=== PATIENT | male | born 1955 | race Caucasian/White ===

== ENCOUNTER 2021-02-28 09:00 | Day surgery (SDC) | payer MEDICARE, SELFPAY ==
[2021-02-22 09:52] VITALS: BMI 22.3
--- NOTE | 2021-02-24 08:18 | MHC.SHP ---
Pre-Procedural Eval Section A The patient is an INPATIENT: No The History & Physical has been completed within 30 days and I have reviewed it.: Yes Section B Chief Complaint: Cataract Left Eye Allergies: Allergies Allergy/AdvReac Type Severity Reaction Status Date / Time No Known Allergies Allergy Verified 02/23/21 12:00 [No Known Allergies*] Plan Diagnosis/Plan: Unchanged I have reviewed the history and physical and performed a pertinent physical examination on my patient. No changes have occurred unless specified.
--- NOTE | 2021-02-25 09:54 | HO.ANESPROP2 ---
Documented by User: Elsa Perkins 02/25/21 09:55 HPI - Anesthesia Eval Consult details Narrative: 65yo M for Left Cataract Extraction IOL Insertion PCP cleared No prev cataract on record [facility] Active Problems Active Problems: All Active Problems (Updated 02/23/21 @ 12:09 by Rizwan Ibrahim MD) Preop exam for internal medicine (Acute) Tobacco abuse (Acute) Hypercholesterolemia (Acute) Atherosclerosis (Acute) COPD (chronic obstructive pulmonary disease) (Acute) Hypertension (Acute) Impaired fasting blood sugar (Acute) Past Medical History Medical History (Updated 02/23/21 @ 12:09 by Rizwan Ibrahim MD) Atherosclerosis COPD (chronic obstructive pulmonary disease) COVID-19 vaccine administered Fatty liver History of alcohol abuse Hypercholesterolemia Hypertension Impaired fasting blood sugar Leukopenia Pulmonary nodule Thrombocytopenia Tobacco abuse Family History Family History (Updated 08/02/20 @ 10:01 by Janette Paula [facility]) Father No problems noted. Mother Uterine cancer Maternal Grandmother Myocardial infarction Maternal Uncle Myocardial infarction Surgical History Surgical History (Updated 02/22/21 @ 09:53 by Beverly Wilkins) History of inguinal hernia repair History of vasectomy Social History Social History (Updated 02/23/21 @ 12:16 by Rizwan Ibrahim MD) Housing: House Are you a primary customer care associate to a significant other at home: No Do you presently have visiting nurse or other home services: No Alcohol intake: current Alcohol intake frequency: 0-2 drinks per day Alcohol type: beer Patient Tobacco Use Status: Current everyday Tobacco user Tobacco use type: Cigarette Cigarette Packs Per Day: 1 Cigarettes Per Day: 20.0 Years Smoked: 45 Use of substances other than those prescribed or required for medical reasons: No Have you been hit, kicked, punched, or otherwise hurt by someone within the past year? If so, by whom?: No Are you DNR?: No Advance Directives Information Provided: No Recently lost weight without trying: No Eating poorly because of decreased appetite: No Nutrition Risks: No Nutritional Risk service: No Current occupational status: employed Meds Allergies Allergy/AdvReac Type Severity Reaction Status Date / Time No Known Allergies Allergy Verified 02/23/21 12:00 [No Known Allergies*] Exam Exam Date and Time: February 25, 2021 0954 Height,Weight and Vital Signs: Height 5 ft 9 in Weight 68.492 kg Assessment and Plan Assessment Anesthesia Assessment: Chart Reviewed Documented by User: Sasha Flood 02/28/21 11:36 PMFSH Past Medical History Medical History (Updated 02/23/21 @ 12:09 by Rizwan Ibrahim MD) Atherosclerosis COPD (chronic obstructive pulmonary disease) COVID-19 vaccine administered Fatty liver History of alcohol abuse Hypercholesterolemia Hypertension Impaired fasting blood sugar Leukopenia Pulmonary nodule Thrombocytopenia Tobacco abuse Family History Family History (Updated 08/02/20 @ 10:01 by Janette Paula [facility]) Father No problems noted. Mother Uterine cancer Maternal Grandmother Myocardial infarction Maternal Uncle Myocardial infarction Surgical History Surgical History (Updated 02/22/21 @ 09:53 by Beverly Wilkins) History of inguinal hernia repair History of vasectomy Social History Social History (Updated 02/23/21 @ 12:16 by Rizwan Ibrahim MD) Housing: House Are you a primary customer care associate to a significant other at home: No Do you presently have visiting nurse or other home services: No Alcohol intake: current Alcohol intake frequency: 0-2 drinks per day Alcohol type: beer Patient Tobacco Use Status: Current everyday Tobacco user Tobacco use type: Cigarette Cigarette Packs Per Day: 1 Cigarettes Per Day: 20.0 Years Smoked: 45 Use of substances other than those prescribed or required for medical reasons: No Have you been hit, kicked, punched, or otherwise hurt by someone within the past year? If so, by whom?: No Are you DNR?: No Advance Directives Information Provided: No Recently lost weight without trying: No Eating poorly because of decreased appetite: No Nutrition Risks: No Nutritional Risk service: No Current occupational status: employed Meds Allergies Allergy/AdvReac Type Severity Reaction Status Date / Time No Known Allergies Allergy Verified 02/23/21 12:00 [No Known Allergies*] Exam Airway Mallampati Class: II (Edentulos) TM Dist: >3cm Neck ROM: Full Heart: rrr Lungs: cta Assessment and Plan Assessment Anesthesia Assessment: Anesthesia Plan Discussed and Chart Reviewed Final Anesthetic Review NPO: Yes ASA Class: III Final Preanesthetic Review: No Changes in Pt Med Stat and Consent Obtained/Reviewed Patient Risk: Intermediate Procedure Risk: Intermediate Anesthetic Plan Anesthetic Plan: MAC: Disposition: Standard PACU
--- NOTE | 2021-02-25 12:20 | ECG_ITS ---
Test Reason : PREOP Blood Pressure : / mmHG Vent. Rate : 079 BPM Atrial Rate : 079 BPM P-R Int : 180 ms QRS Dur : 098 ms QT Int : 380 ms P-R-T Axes : 063 064 069 degrees QTc Int : 435 ms Normal sinus rhythm Normal ECG When compared with ECG of 11-NOV-2011 08:30, No significant change was found Referred By: Rizwan Ibrahim Electronically Signed By:KARINA HERNDON
[2021-02-25 13:44] LABS: MANUAL DIFF FLAG NO
[2021-02-25 13:49] LABS: Basophils Percent Auto 0.7 % (0-2); Eosinophils Absolute Auto 0.1 X10*3/uL (0.0-0.4); Eosinophils Percent Auto 1.4 % (0-4); Hematocrit 46.7 % (42-52); Hemoglobin 17.1 g/dl (14.0-18.0); Imm Gran Abs Auto 0.02 X10*3/uL (0.00-0.03); Imm Gran Pct Auto 0.3 % (0.0-0.4); Lymphocytes Absolute Auto 1.5 X10*3/uL (1.2-4.9); Lymphocytes Percent Auto 25.2 % (20-40); Mean Corpuscular HGB Conc 36.6 g/dl (31.0-36.0); Mean Corpuscular Hemoglobin 34.8 pg (27.0-33.0); Mean Corpuscular Volume 94.9 fL (80-98); Mean Platelet Volume 10.1 fL (9.4-12.4); Monocytes Absolute Auto 0.6 X10*3/uL (0.1-1.2); Monocytes Percent Auto 10.4 % (2-11); Neutrophils Absolute Auto 3.6 X10*3/uL (2.0-8.3); Platelet Count 187 X10*3/uL (160-400); Red Blood Count 4.92 X10*6/uL (4.60-5.80); Red Cell Distribution Width 12.2 % (11.0-16.0); White Blood Count 5.8 X10*3/uL (4.8-10.8)
[2021-02-25 14:06] LABS: Anion Gap 14 (12-20); Blood Urea Nitrogen 8 mg/dL (9-16); Calcium 9.8 mg/dL (8.4-10.2); Carbon Dioxide 24 mmol/L (22-29); Chloride 100 mmol/L (96-108); Estimated Glomerular Filt Rate > 60; Glucose Random 160 mg/dL (60-115); Potassium 4.4 mmol/L (3.3-5.1); Sodium 134 mmol/L (135-145)
[2021-02-28 11:14] VITALS: BP 156/68; PULSE 70; RESP 18; TEMP 36.9; O2SAT 97
[2021-02-28] MEDS: Tetracaine HCl/PF 0.5% Oph Sol 4 ML DROPS 1 DROP EYE-LEFT (11:18)
[2021-02-28] MEDS: Tropicamide 1 % Ophth Sol 3 ML BTL 1 DROP EYE-LEFT ×3 (11:19→11:27)
[2021-02-28] MEDS: Phenylephrine HCL 2.5% Oph SoL 2 ML BOTTLE 1 DROP EYE-LEFT ×3 (11:21→11:29)
[2021-02-28] MEDS: Lactated Ringers 500 ML 50 ML IV (11:37)
--- NOTE | 2021-02-28 13:58 | HO.PNOPHT ---
Ophthalmology Procedure Procedure Date of Service: 02/28/21 Ophthalmology Viscoelastic: Healon Duet Dual Pack Pro Ophthalmology Lenses: TECNIS [id number] (19.5) Procedure Notes: PREOPERATIVE DIAGNOSIS: Decreased visual acuity left eye secondary to cataract POSTOPERATIVE DIAGNOSIS: Same PROCEDURE: Left cataract extraction with intraocular lens insertion SURGEON: Edgard Pearce M.D. ANESTHESIA: Topical/MAC ESTIMATED BLOOD LOSS: None COMPLICATIONS: None After obtaining informed consent, the patient was brought to the operation room suite and placed in the supine position. After adequate sedation per anesthesia, topical drops of Tetracaine were given to the left eye. The eye was then prepped and draped in the usual sterile fashion. The operating room microscope was then positioned over the operative eye and a lid speculum placed. A paracentesis was created. Viscoelastic was then instilled into the anterior chamber. A three plane incision was then created temporally, utilizing a 2.85 mm keratome. Capsulotomy forceps were then utilized to create a circular tear capsulotomy. Hydrodissection and hydrodelineation were carried out until adequate mobilization of the nucleus occurred. Phacoemulsification was then utilized to remove the dense central nucleus followed by removal of the cortical material utilizing the automated aspiration irrigation unit. Viscoat elastic was instilled into the posterior capsular bag followed by placement of a posterior chamber intraocular lens without difficulty. The residual Viscoat elastic was then removed utilizing the automated IA machine. The wound was check and found to be watertight. The patient tolerated the procedure well and the lid speculum was removed. Intracameral injection of Vigamox 0.1 mL followed by a subtenon injection of Kenalog-40 0.2 mL were administered. The patient will be seen in the a.m.
[2021-02-28 14:10] VITALS: BP 175/85; PULSE 74; RESP 18; TEMP 36.6; O2SAT 99
== END 2021-02-28 14:28 | disposition home or self-care (01) ==
PROVIDERS: Absent Provider Internal Medicine; PCP Internal Medicine; Visit Provider Ophthalmology
PROC: (CPT 66985; principal; 2021-02-28 12:30)
DX: H25.12 Age-related nuclear cataract, left eye (principal); H54.7 Unspecified visual loss; I10 Essential (primary) hypertension; G47.33 Obstructive sleep apnea (adult) (pediatric); D69.6 Thrombocytopenia, unspecified; D72.819 Decreased white blood cell count, unspecified; R73.01 Impaired fasting glucose; F17.210 Nicotine dependence, cigarettes, uncomplicated; Z79.899 Other long term (current) drug therapy
CPT/HCPCS: 66984; 36415; 80048; 85025; 93005; J2250; J3010; J3300; V2632

== ENCOUNTER 2021-03-21 07:21 | Day surgery (SDC) | payer MEDICARE, SELFPAY ==
[2021-02-22 09:58] VITALS: BMI 22.3
--- NOTE | 2021-03-17 07:33 | MHC.SHP ---
Pre-Procedural Eval Section A Date of Service: 03/17/21 The patient is an INPATIENT: No The History & Physical has been completed within 30 days and I have reviewed it.: Yes Section B Chief Complaint: Cataract Right Eye Allergies: Allergies Allergy/AdvReac Type Severity Reaction Status Date / Time No Known Allergies Allergy Verified 02/23/21 12:00 [No Known Allergies*] Plan Diagnosis/Plan: Unchanged I have reviewed the history and physical and performed a pertinent physical examination on my patient. No changes have occurred unless specified.
--- NOTE | 2021-03-18 09:44 | P.CONAN_ITS ---
Documented by User: Elsa Dodsonney 03/18/21 09:45 HPI - Anesthesia Eval Consult details Narrative: 65yo M for Right Cataract Extraction IOL Insertion PCP cleared Left eye 02/28: Fent 50, Midaz 1 PMFSH Active Problems Active Problems: All Active Problems (Updated 02/23/21 @ 12:09 by Rizwan Ibrahim MD) Preop exam for internal medicine (Acute) Tobacco abuse (Acute) Hypercholesterolemia (Acute) Atherosclerosis (Acute) COPD (chronic obstructive pulmonary disease) (Acute) Hypertension (Acute) Impaired fasting blood sugar (Acute) Past Medical History Medical History (Updated 02/23/21 @ 12:09 by Rizwan Ibrahim MD) Atherosclerosis COPD (chronic obstructive pulmonary disease) COVID-19 vaccine administered Fatty liver History of alcohol abuse Hypercholesterolemia Hypertension Impaired fasting blood sugar Leukopenia Pulmonary nodule Thrombocytopenia Tobacco abuse Family History Family History (Updated 08/02/20 @ 10:01 by Janette Paula [facility]) Father No problems noted. Mother Uterine cancer Maternal Grandmother Myocardial infarction Maternal Uncle Myocardial infarction Surgical History Surgical History (Updated 02/22/21 @ 09:53 by Beverly Wilkins) History of inguinal hernia repair History of vasectomy Social History Social History (Updated 02/23/21 @ 12:16 by Rizwan Ibrahim MD) Housing: House Are you a primary healthcare receptionist to a significant other at home: No Do you presently have visiting nurse or other home services: No Alcohol intake: current Alcohol intake frequency: 0-2 drinks per day Alcohol type: beer Patient Tobacco Use Status: Current everyday Tobacco user Tobacco use type: Cigarette Cigarette Packs Per Day: 1 Cigarettes Per Day: 20.0 Years Smoked: 45 Use of substances other than those prescribed or required for medical reasons: No Have you been hit, kicked, punched, or otherwise hurt by someone within the past year? If so, by whom?: No Are you DNR?: No Advance Directives Information Provided: No Recently lost weight without trying: No Eating poorly because of decreased appetite: No Nutrition Risks: No Nutritional Risk service: No Current occupational status: employed Meds Allergies Allergy/AdvReac Type Severity Reaction Status Date / Time No Known Allergies Allergy Verified 02/23/21 12:00 [No Known Allergies*] Exam Exam Date and Time: March 18, 2021 0944 Height,Weight and Vital Signs: Height 5 ft 9 in Weight 68.492 kg Assessment and Plan Assessment Anesthesia Assessment: Chart Reviewed Documented by User: Emery Nicole 03/21/21 07:08 [facility] Past Medical History Medical History (Updated 02/23/21 @ 12:09 by Rizwan Ibrahim MD) Atherosclerosis COPD (chronic obstructive pulmonary disease) COVID-19 vaccine administered Fatty liver History of alcohol abuse Hypercholesterolemia Hypertension Impaired fasting blood sugar Leukopenia Pulmonary nodule Thrombocytopenia Tobacco abuse Family History Family History (Updated 08/02/20 @ 10:01 by Janette Paula [facility]) Father No problems noted. Mother Uterine cancer Maternal Grandmother Myocardial infarction Maternal Uncle Myocardial infarction Surgical History Surgical History (Updated 02/22/21 @ 09:53 by Beverly Wilkins) History of inguinal hernia repair History of vasectomy Social History Social History (Updated 02/23/21 @ 12:16 by Rizwan Ibrahim MD) Housing: House Are you a primary healthcare receptionist to a significant other at home: No Do you presently have visiting nurse or other home services: No Alcohol intake: current Alcohol intake frequency: 0-2 drinks per day Alcohol type: beer Patient Tobacco Use Status: Current everyday Tobacco user Tobacco use type: Cigarette Cigarette Packs Per Day: 1 Cigarettes Per Day: 20.0 Years Smoked: 45 Use of substances other than those prescribed or required for medical reasons: No Have you been hit, kicked, punched, or otherwise hurt by someone within the past year? If so, by whom?: No Are you DNR?: No Advance Directives Information Provided: No Recently lost weight without trying: No Eating poorly because of decreased appetite: No Nutrition Risks: No Nutritional Risk service: No Current occupational status: employed Meds Allergies Allergy/AdvReac Type Severity Reaction Status Date / Time No Known Allergies Allergy Verified 02/23/21 12:00 [No Known Allergies*] Exam Airway Mallampati Class: II TM Dist: >3cm Neck ROM: Full Loose/Missing/Broken Teeth: Yes Heart: rrr+s1s2 Lungs: cta b/l Assessment and Plan Assessment Anesthesia Assessment: Anesthesia Plan Discussed, PAT Visit and Chart Reviewed Final Anesthetic Review NPO: Yes ASA Class: III Final Preanesthetic Review: No Changes in Pt Med Stat, Meds/Allgs Chart Reviewed, Consent Obtained/Reviewed and Anes Risks/Benef Reviewed Patient Risk: Intermediate Procedure Risk: Low Assessment/Block/Sedation in SS: Assess/Block/Sedation-SS Anesthetic Plan Anesthetic Plan: MAC: and Agree w/ Assess. and Plan Disposition: Standard PACU
[2021-03-21 07:42] VITALS: BP 149/78; PULSE 74; RESP 18; TEMP 36.2; O2SAT 97
[2021-03-21] MEDS: Tetracaine HCl/PF 0.5% Oph Sol 4 ML DROPS 1 DROP EYE-RIGHT (07:52)
[2021-03-21] MEDS: Phenylephrine HCL 2.5% Oph SoL 2 ML BOTTLE 1 DROP EYE-RIGHT ×3 (07:53→07:54)
[2021-03-21] MEDS: Tropicamide 1 % Ophth Sol 3 ML BTL 1 DROP EYE-RIGHT ×3 (07:53→07:54)
[2021-03-21] MEDS: Lactated Ringers 500 ML 50 ML IV (07:54)
--- NOTE | 2021-03-21 08:42 | HO.PNOPHT ---
Ophthalmology Procedure Procedure Date of Service: 03/21/21 Ophthalmology Viscoelastic: Healon Duet Dual Pack Pro Ophthalmology Lenses: TECNIS [id number] (19.5) Procedure Notes: PREOPERATIVE DIAGNOSIS: Decreased visual acuity right eye secondary to cataract POSTOPERATIVE DIAGNOSIS: Same PROCEDURE: Right cataract extraction with intraocular lens insertion SURGEON: Edgard Pearce M.D. ANESTHESIA: Topical/MAC ESTIMATED BLOOD LOSS: None COMPLICATIONS: None After obtaining informed consent, the patient was brought to the operating room suite and placed in the supine position. After adequate sedation per anesthesia, topical drops of Tetracaine were given to the right eye. The eye was then prepped and draped in the usual sterile fashion. The operating room microscope was then positioned over the operative eye and a lid speculum placed. A paracentesis was created. Viscoelastic was then instilled into the anterior chamber. A three plane incision was then created temporally, utilizing a 2.85 mm keratome. Capsulotomy forceps were then utilized to create a circular tear capsulotomy. Hydrodissection and hydrodelineation were carried out until adequate mobilization of the nucleus occurred. Phacoemulsification was then utilized to remove the dense central nucleus followed by removal of the cortical material utilizing the automated aspiration irrigation unit. Viscoelastic was instilled into the posterior capsular bag followed by placement of a posterior chamber intraocular lens without difficulty. The residual Viscoelastic was then removed utilizing the automated IA machine. The wound was checked and found to be watertight. The patient tolerated the procedure well and the lid speculum was removed. Intracameral injection of Vigamox 0.1 mL followed by a subtenon injection of Kenalog-40 0.2 mL were administered. The patient will be seen in the a.m.
[2021-03-21 09:16] VITALS: BP 136/73; PULSE 74; TEMP 36.2; O2SAT 99
== END 2021-03-21 09:24 | disposition home or self-care (01) ==
PROVIDERS: PCP Internal Medicine; Visit Provider Ophthalmology
PROC: (CPT 66985; principal; 2021-03-21 08:50)
DX: H25.11 Age-related nuclear cataract, right eye (principal); H54.7 Unspecified visual loss; H35.00 Unspecified background retinopathy; J44.9 Chronic obstructive pulmonary disease, unspecified; I10 Essential (primary) hypertension; D69.6 Thrombocytopenia, unspecified; D72.819 Decreased white blood cell count, unspecified; K76.0 Fatty (change of) liver, not elsewhere classified; R91.1 Solitary pulmonary nodule; F17.210 Nicotine dependence, cigarettes, uncomplicated; R73.01 Impaired fasting glucose; Z79.899 Other long term (current) drug therapy
CPT/HCPCS: 66984; J2250; J3010; J3300; V2632

== ENCOUNTER 2021-05-12 12:50 | Outpatient (REF) | payer MEDICARE, OTHER, SELFPAY ==
--- NOTE | ~2021-05-12 | CT_ITS ---
EXAMINATION: CT CHEST WITHOUT CONTRAST CLINICAL INFORMATION: Pulmonary nodule. COMPARISON: Previous chest CT scans most recent April 2020. TECHNIQUE: Multidetector volumetric CT imaging of the chest was done. Axial MIP volume rendering provided. Sagittal and coronal reformatted images were obtained. This CT examination was performed using dose optimization techniques as appropriate, variously including the following: *Automated exposure control *Adjustment of mA and/or kV according to patient size (this includes techniques or standardized protocols for targeted exams where dose is matched to indication/reason for exam; i.e. extremities or head) *Use of iterative reconstruction technique DLP: 147 mGy-cm FINDINGS: SODDER: Well-inflated lungs. LUNGS: There is evidence of mild emphysema. The small pulmonary nodules are stable. Largest pulmonary nodule is a 3 mm calcified right upper lobe nodule axial image 115 series 4. There is evidence of mild bronchial wall thickening suggestive of airways disease. No endobronchial or endotracheal lesion is seen. There is no evidence of interstitial lung disease. MEDIASTINUM: The heart does not appear enlarged. There is coronary artery calcification. There is no pericardial effusion. There are no enlarged hilar or mediastinal lymph nodes. The thoracic aorta is normal in caliber. PLEURA: There is no pleural effusion. No pleural mass or thickening. AXILLA: No lymphadenopathy. UPPER ABDOMEN: Unremarkable. OSSEOUS STRUCTURES: There are degenerative changes of the spine. There are old right lateral rib fractures. CT/CT chest wo con IMPRESSION: Mild emphysema. Stable small pulmonary nodules, largest a calcified 3 mm right upper lobe nodule. Mild diffuse bronchial wall thickening suggestive of airways disease. Coronary artery calcification.
== END 2021-05-12 12:51 | disposition home or self-care (01) ==
LOC: HO.CT 12:50
PROVIDERS: PCP Internal Medicine; Visit Provider Internal Medicine
DX: R91.1 Solitary pulmonary nodule (principal)
CPT/HCPCS: 71250

== ENCOUNTER 2021-05-26 13:24 | Outpatient (REF) | payer MEDICARE, SELFPAY | END 2021-05-26 13:25 | disposition home or self-care (01) | LOC: HO.HMGCLDS 13:24 | PROVIDERS: PCP Internal Medicine; Visit Provider Internal Medicine | DX: Z20.822 Contact with and (suspected) exposure to COVID-19 (principal) | CPT/HCPCS: C9803; U0003; U0005 ==

== ENCOUNTER 2022-04-18 09:39 | Outpatient (REF) | payer MEDICARE, SELFPAY ==
--- NOTE | ~2022-04-18 | CT_ITS ---
EXAMINATION: CT CHEST WITHOUT CONTRAST CLINICAL INFORMATION: Pulmonary nodule follow-up. COMPARISON: Previous chest CT May 2021. TECHNIQUE: Multidetector volumetric CT imaging of the chest was done. Axial MIP volume rendering provided. Sagittal and coronal reformatted images were obtained. This CT examination was performed using dose optimization techniques as appropriate, variously including the following: *Automated exposure control *Adjustment of mA and/or kV according to patient size (this includes techniques or standardized protocols for targeted exams where dose is matched to indication/reason for exam; i.e. extremities or head) *Use of iterative reconstruction technique DLP: 121 mGy-cm FINDINGS: LUNGS: There is mild biapical pleural and parenchymal scarring. There is evidence of mild emphysema. The small pulmonary nodules are stable. Largest pulmonary nodules are 3 mm calcified right upper lobe nodule axial image 102 series 7 and right middle lobe nodule axial image 394 series 7. There are scattered areas of bronchial wall thickening and bronchial soft tissue opacification. This is greatest in the bilateral lower lobes. There is increased soft tissue in the trachea and jerald. This appears linear and mixed with air and is suggestive of patient secretions. MEDIASTINUM: There is coronary artery calcification. The mediastinum is otherwise normal. PLEURA: There is no pleural effusion. No pleural mass or thickening. AXILLA: No lymphadenopathy. UPPER ABDOMEN: Unremarkable. OSSEOUS STRUCTURES: There are mild degenerative changes of the spine. There are old right lateral rib fractures. CT/CT chest wo con IMPRESSION: Mild emphysema. Stable pulmonary nodules. Airways disease. Coronary artery calcification. Fleischner guidelines were followed.
== END 2022-04-18 09:40 | disposition home or self-care (01) ==
LOC: HO.CT 09:39
PROVIDERS: PCP Internal Medicine; Visit Provider Internal Medicine
DX: R91.1 Solitary pulmonary nodule (principal)
CPT/HCPCS: 71250

== ENCOUNTER → 2022-09-08 10:01 | Outpatient (REF) | payer MEDICARE, OTHER, SELFPAY ==
--- NOTE | 2022-09-08 10:03 | CA_ITS ---
Acquisition Time: 2022-09-08 10:35:55 Total Exercise Time: 00:03:12 Test Indications: Screening for CAD Medications: AMLODIPINE LISINOPRIL Protocol: THOMAS Max HR: 118 BPM 77% of Pred: 153 BPM Max BP: 136/064 mmHG Max Work Load: 4.8 METS Exercise stress test with exercise 3 min 12 sec of Thomas protocol, achieving 77% MPHR, 2.5 METs, with request to stop due to leg fatigue and moderate shortness of breath, No chest discomfort, without arrythmia, with normotensive response to exercise, with nondiagnostic EKG for ischemia due to suboptimal heart rate and exercise time. Test reviewed with Dr Nevarez Message sent to Dr Ibrahim with report and recommendation for pharm nuclear stress test if further evaluation of ischemia is warranted. Referred By: Rizwan Ibrahim Overread By: XAVIER RODRIGUEZ
== END ==
LOC: HO.CARD 10:01
PROVIDERS: PCP Internal Medicine; Visit Provider Internal Medicine
DX: I70.90 Unspecified atherosclerosis (principal)
CPT/HCPCS: 93017

== ENCOUNTER → 2023-04-20 08:23 | Outpatient (REF) | payer MEDICARE, SELFPAY ==
--- NOTE | ~2023-04-20 | NM_ITS ---
Exercise Myocardial perfusion study Indication: Shortness of breath evaluate for myocardial ischemia Technique: The patient was brought in for an exercise perfusion study on 04/20/2023. Patient performed exercise as per Spike protocol and was injected 25 mCi of sestamibi was given intravenously one target HR was achieved. Images were obtained using the SPECT gamma camera interlaced with the gating device. Images were obtained in supine position. Resting perfusion study was performed on 04/25/2023. Patient was administered 25 mCi of sestamibi intravenously at rest. Images were then obtained in supine position. Images obtained with and without CT attenuation. Total DLP 69 mGy-cm. Images were processed with the software and compared side to side in short axis, horizontal long axis and vertical long axis views. Findings: The stress perfusion study showed non attenuated images show some thinning of the inferoapical wall as well as mildly reduced uptake in the basal septum of the LV myocardium. Attenuation corrected images show normal uptake of radiotracer in all segments of LV myocardium. The gated study shows normal LV systolic function with calculated LVEF of 55%. LV cavity is normal in size. The gated study shows normal systolic wall thickening and contraction of all segments. There is no transient ischemic dilation. Resting study shows no change in perfusion pattern compared to stress perfusion study. Gating at rest reveals normal systolic wall motion with visually estimated ejection fraction at greater than 50%. The findings are consistent with no clear reversible defect suggestive of ischemia. NM/NM cardiolite stress test Impression: 1. Likely normal myocardial perfusion 2. Gated LVEF is 55% 3. Transient ischemic dilatation not present Stress EKG is negative for ischemia
--- NOTE | 2023-04-20 08:27 | CA_ITS ---
Acquisition Time: 2023-04-20 08:44:59 Total Exercise Time: 00:05:00 Test Indications: shortness of breathj Medications: Protocol: THOMAS Max HR: 139 BPM 90% of Pred: 153 BPM Max BP: 156/068 mmHG Max Work Load: 4.6 METS Exercise stress test exercise 5 min achieivng 90% MPHR, with moderate SOB, no chest discomfort, without arrhythmias, with normotensive response to exercise, without EKG changes. Breathing returned to normal with rest. Nculear images pending. Test reviewed with Dr. Miranda. Referred By: Rizwan Ibrahim Overread By: Clifford Miranda
== END ==
LOC: HO.CARD 08:23
PROVIDERS: PCP Internal Medicine; Visit Provider Internal Medicine
DX: R06.02 Shortness of breath (principal)
CPT/HCPCS: 78452; 93017; A9500

== ENCOUNTER → 2023-04-20 08:27 | Outpatient (BNV) | payer MEDICARE, SELFPAY | PROVIDERS: PCP Internal Medicine; Visit Provider Internal Medicine Cardiovascular Disease | DX: R06.02 Shortness of breath (principal) | CPT/HCPCS: 78452; 93016; 93018 ==

== ENCOUNTER 2023-07-03 11:21 | Outpatient (AMB) | payer MEDICARE, SELFPAY ==
[2023-07-03 11:22] VITALS: BP 92/60; PULSE 92; O2SAT 96; BMI 21.7
--- NOTE | 2023-07-03 11:22 | MHC.PC.OV ---
Vital Signs 07/03/23 11:22 07/03/23 11:55 Height 5 ft 9 in Weight 147 lb 0.2 oz BMI 21.7 BP 92/60 118/60 Blood Pressure Location Lt brachial Lt brachial Position Sitting Sitting Pulse 92 Pulse Source Pulse Oximeter Pulse Oximetry (%) 96 Oxygen Delivery Method Room Air Intake Visit Reasons: Annual Physical Intake Note: Patient is here today for a physical. 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: No Allergies No Known Allergies [No Known Allergies*] Allergy (Verified 07/03/23 11:24) Medication List - Last Reconciled 07/03/23 by Rizwan Ibrahim MD amlodipine 2.5 mg PO DAILY 90 days lisinopril 20 mg PO DAILY multivitamin 1 tab PO DAILY Tobacco use date assessed: 07/03/23 Fall risk assessment: No Falls in past year Last assessed Fall Risk: 07/03/23 Dental Screening Dental Screen Date: 07/03/23 Did you have a dental visit in the last 12 months?: No Did you have a dental problem in the last 6 months where you did not have access to dental care?: No HPI Annual Physical HPI Details 68-year-old male smoker with a history of impaired glucose tolerance hypertension COPD atherosclerosis hypercholesterolemia coming in for physical exam last seen in June 2022. Review of the notes in April 2023 patient had a myocardial perfusion study showing normal myocardial perfusion left ventricular ejection fraction 55% [facility] Medical History (Updated 07/03/23 @ 11:50 by Rizwan Ibrahim MD) COVID-19 vaccine administered History of alcohol abuse Thrombocytopenia Leukopenia Fatty liver Tobacco abuse Hypercholesterolemia Pulmonary nodule Atherosclerosis COPD (chronic obstructive pulmonary disease) Hypertension Impaired fasting blood sugar Surgical History (Updated 02/22/21 @ 09:53 by Beverly Wilkins RN) History of inguinal hernia repair History of vasectomy Family History (Updated 08/02/20 @ 10:01 by VENANCIO Allen) Father No problems noted. Mother Uterine cancer Maternal Grandmother Myocardial infarction Maternal Uncle Myocardial infarction Social History (Updated 07/03/23 @ 11:57 by Rizwan Ibrahim MD) Housing: House Are you a primary healthcare facility administrator to a significant other at home: No Do you presently have visiting nurse or other home services: No Alcohol intake: current Alcohol intake frequency: 0-2 drinks per day Alcohol type: beer Patient Tobacco Use Status: Current everyday Tobacco user Tobacco use type: Cigarette Cigarette Packs Per Day: 1 Cigarettes Per Day: 20.0 Years Smoked: 45 e-Cigarette/Vaping Use: Never Used Second Hand Smoke Exposure: Yes service: No Current occupational status: employed Cognitive needs: No Hearing needs: No Vision needs: Yes Questionnaire PHQ-9 Over the last 2 weeks, how often have you been bothered by any of the following problems? 1. Little interest or pleasure in doing things: not at all 2. Feeling down, depressed, or hopeless: not at all 3. Trouble falling or staying asleep, or sleeping too much: not at all 4. Feeling tired or having little energy: not at all 5. Poor appetite or overeating: not at all 6. Feeling bad about yourself - or that you are a failure or have let yourself or your family down: not at all 7. Trouble concentrating on things, such as reading the newspaper or watching television: not at all 8. Moving or speaking so slowly that other people could have noticed. Or the opposite - being so fidgety or restless that you have been moving around a lot more than usual: not at all 9. Thoughts that you would be better off or of hurting yourself in some way: not at all Total score: 0 Depression Screening Interpretation: Negative Depression Screening Done: Yes Source: Developed by Drs. Edgar Mendoza, Nathalia Park, Héctor Reyes and colleagues, with an educational lise from [employer]. Thrive Questionnaire Date Thrive assessed: 07/03/23 I am a: Patient What is your living situation today?: I have a steady place to live Within the past 12 months, did the food you bought not last and you didn't have the money to get more?: Never true Within the past 12 months, did you worry whether your food would run out before you got money to buy more?: Never true Do you have trouble paying for medicines?: No Do you have trouble getting transportation to medical appointments?: No Do you have trouble paying your heating and electricity bill?: No Do you have trouble taking care of your child, family member or friend?: No Do you have trouble with day-to-day activities such as bathing, preparing meals, shopping, managing finances, etc.?: No Are you currently unemployed and looking for a job?: No Are you interested in more education?: No AUDIT C Alcohol Use Questionnaire (AUDIT-C) 1. How often do you have a drink containing alcohol?: 4 or more times a week 2. How many drinks containing alcohol do you have on a typical day when you are drinking?: 3 or 4 3. How often do you have six or more drinks on one occasion?: Less than monthly Total Score: 6 TIN-7 AMB Questionnaire TIN-7 Date TIN - 7 assessed: 07/03/23 Feeling nervous, anxious, or on edge: 0 = Not at all Not being able to stop or control worryin = Not at all Worrying too much about different things: 0 = Not at all Trouble relaxin = Not at all Being so restless that it is hard to sit still: 0 = Not at all Becoming easily annoyed or irritable: 0 = Not at all Feeling afraid as if something awful might happen: 0 = Not at all Total TIN-7 score (0-4 normal; 5-9 mild; 10-14 moderate; 15-21 severe): 0 Source: Developed by Drs. Edgar Mendoza, Nathalia Park, Héctor Reyes and colleagues, with an educational lise from [employer]. Review of Systems Const Denies poor appetite and Denies weakness Eyes Denies no additional complaints ENT Reports Normal hearing present, Denies dizziness, Denies nasal congestion, Denies tinnitus and Denies sore throat Card Denies chest pain, Denies syncope, Denies rapid heart rate and Denies dyspnea Resp Denies cough and Denies dyspnea GI Denies change in stool character, Reports constipation, Denies diarrhea, Denies nausea and Denies vomiting Denies dysuria and Denies urinary frequency Neuro Reports Normal hearing present, Denies confusion, Denies dizziness, Denies syncope and Denies weakness Psych Denies confusion Physical exam (Primary Care) Vital Signs: Last Vital Signs Pulse 92 07/03/23 11:22 BP 92/60 07/03/23 11:22 Pulse Ox 96 07/03/23 11:22 Oxygen Delivery Method Room Air 07/03/23 11:22 BMI result Body Mass Index 21.7 Tobacco/Smoking Status: Tobacco use Status Tobacco use date assessed 07/03/23 07/03/23 11:25 Patient Tobacco Use Status Current everyday Tobacco 07/03/23 11:25 Tobacco use type Cigarette 07/03/23 11:25 e-Cigarette/Vaping Use Never Used 07/03/23 11:25 PHQ-9: PHQ-9 Score PHQ-9: Total score 0 07/03/23 11:25 Depression Screening Interpretation: Negative Thrive Assessment: Date of Thrive Assessment Date Thrive assessed 07/03/23 07/03/23 11:25 Const General: No confusion Orientation/consciousness: No confusion HENMT Head: Yes normocephalic Ears: external ears normal and TM's normal bilaterally Face and sinus: Yes normal facial exam Mouth: moist mucous membranes Throat: Yes tonsils normal Eyes Conjunctivae: conjunctivae normal Pupils: Equal, round and reactive pupils present and Pupil accommodation reflex normal Direct Ophthalmoscopy: normal light reflex Neck Neck: No lymphadenopathy Thyroid: Thyroid normal Chest Chest palpation & inspection: normal inspection of the chest Resp Effort & Inspection: normal respiratory effort and no audible wheezes Auscultation: clear to auscultation bilaterally, no crackles, no wheezes and lung sounds not diminished Cardio Rate: regular rate Rhythm: regular rhythm Peripheral pulses: radial pulses present and dorsalis pedis present GI Other: guaiac neg prostate n Palpation (GI): no masses Auscultation: normal bowel sounds and normoactive bowel sounds Male General Exam: Yes normal external exam Skin General skin exam: no rashes or lesions noted Rashes: no rashes Neuro General: No confusion Cranial nerves: Yes Equal, round and reactive pupils present and Yes Normal hearing present Cognition (Neuro): normal cognition Gait exam (Neuro): Normal gait present Motor exam (neuro): 5/5 motor strength present throughout Deep tendon reflexes (DTR's): Right brachioradialis reflex intensity grade: 2+, Left brachioradialis reflex intensity grade: 2+, Right patellar reflex intensity grade: 2+ and Left patellar reflex intensity grade: 2+ Extrem General: No edema Assessment and Plan Assessment & Plan (1) Annual physical exam: Code(s): Z00.00 - Encounter for general adult medical examination without abnormal findings (2) Impaired fasting blood sugar: Code(s): R73.01 - Impaired fasting glucose Plan: Decrease the amount of carbohydrate intake, pasta, bread, rice and potatoes are all sugar and that is aside from all the sweet stuff, remember that fruits are good but they are Sweet also. (3) Hypertension: Code(s): I10 - Essential (primary) hypertension Qualifiers: Hypertension type: essential hypertension Qualified Code(s): I10 - Essential (primary) hypertension Plan: Continue with blood pressure medication. Decrease salt intake and exercise patient on amlodipine 2.5 mg once a day and lisinopril 20 mg once a day (4) COPD (chronic obstructive pulmonary disease): Comment: PFT January 2017-patient states he does not use inhaler Code(s): J44.9 - Chronic obstructive pulmonary disease, unspecified Qualifiers: COPD type: emphysema Emphysema type: panlobular Qualified Code(s): J43.1 - Panlobular emphysema Plan: Stable (5) Atherosclerosis: Comment: 40 years old Code(s): I70.90 - Unspecified atherosclerosis Plan: Control the cholesterol, weight, blood pressure (6) Hypercholesterolemia: Code(s): E78.00 - Pure hypercholesterolemia, unspecified Plan: Avoid fried foods, chicken skin, eggs, butter margarine, pastries and meat. Be it pork or beef they have a lot of cholesterol LDL goal of less than 70 and triglyceride of less than 150 (7) Pulmonary nodule: Comment: April 2020, May 2021 stable 3 mm April 2022 Code(s): R91.1 - Solitary pulmonary nodule Plan: Patient advised to follow-up with lung cancer screening program (8) Tobacco abuse: Code(s): Z72.0 - Tobacco use Plan: Patient is strongly advised to stop smoking (9) Colon cancer screening: Code(s): Z12.11 - Encounter for screening for malignant neoplasm of colon Plan: Patient is reminded about colonoscopy- claims cologuard box picked up yesterday Orders: Orders Complete Blood Count Auto Diff Today E78.00 - Pure hypercholesterolemia, unspecified Comprehensive Met. Panel Today E78.00 - Pure hypercholesterolemia, unspecified Lipid Panel Today E78.00 - Pure hypercholesterolemia, unspecified Free T4 (Free Thyroxine) Today E78.00 - Pure hypercholesterolemia, unspecified Thyroid Stimulating Hormone Today E78.00 - Pure hypercholesterolemia, unspecified Vitamin B12 and Folate Today E78.00 - Pure hypercholesterolemia, unspecified Hemoglobin A1c Today R73.01 - Impaired fasting glucose Prostate Specific Antigen Scr Today R73.01 - Impaired fasting glucose Medications: Refilled amlodipine 2.5 mg PO DAILY 90 days 90 tabs 2RF I10 - Essential (primary) hypertension lisinopril 20 mg PO DAILY 90 tabs 2RF R73.01 - Impaired fasting glucose Coding Level of Care Code Est Pt Prev Care >65y(45366) Diagnoses Annual physical exam Z00.00 Impaired fasting blood sugar R73.01 Essential hypertension I10 Hypertension type: essential hypertension Panlobular emphysema J43.1 COPD type: emphysema Emphysema type: panlobular Atherosclerosis I70.90 Hypercholesterolemia E78.00 Pulmonary nodule R91.1 Tobacco abuse Z72.0 Colon cancer screening Z12.11
[2023-07-03 11:55] VITALS: BP 118/60
== END 2023-07-03 12:10 | disposition home or self-care (01) ==
PROVIDERS: PCP Internal Medicine; Visit Provider Internal Medicine
DX: Z00.00 Encounter for general adult medical examination without abnormal findings (principal); R73.01 Impaired fasting glucose; I10 Essential (primary) hypertension; J43.1 Panlobular emphysema; I70.90 Unspecified atherosclerosis; E78.00 Pure hypercholesterolemia, unspecified; R91.1 Solitary pulmonary nodule; Z72.0 Tobacco use; Z12.11 Encounter for screening for malignant neoplasm of colon
CPT/HCPCS: 99397

== ENCOUNTER 2023-07-18 08:21 | Outpatient (AMB) | payer MEDICARE, SELFPAY ==
[2023-07-18 09:14] VITALS: BP 110/62; PULSE 92; TEMP 36.6; O2SAT 96; BMI 22.2
--- NOTE | 2023-07-18 09:14 | AM.OFFWIN_ITS ---
Intake Vital Signs 07/18/23 09:14 Height 5 ft 9 in Weight 150 lb 2 oz BMI 22.2 BP 110/62 Blood Pressure Location Rt brachial Position Sitting Pulse 92 Pulse Source Pulse Oximeter Temp 97.8 F Temp Source Temporal Artery Scan Pulse Oximetry (%) 96 Oxygen Delivery Method Room Air Intake Visit Reasons: EST/stomach pain/ [id number] Intake Note: pt is here for c/o stomach pain, coughing Patient Tobacco Use Status: Current everyday Tobacco user Allergies No Known Allergies [No Known Allergies*] Allergy (Verified 07/18/23 09:15) Do you need a note to return to daycare/school/sports/work: Yes HPI HPI Comments History of Present Illness Details Patient is a 68-year-old male in today for a sick visit. He states that he started to feel abdominal pain 1 day prior to the appointment, after having a coughing spell. Patient states that he has been coughing and he has b een vomiting sputum, and has developed abdomen pain since. He denies fevers. Denies black tarry stools or blood in his stools. States that he has more diarrhea than usual. No urinary symptoms. Has not tried any medication for relief. Patient has significant smoking and alcohol consumption history. He also denies chest pain or shortness of breath. Patient also denies any numbness. Patient's head is normocephalic, TM visible pearly flores, septum midline, pharynx normal. No lympadenopathy. breath sounds have slight expiratory wheeze bilaterally. Normal rate and rhythm of the heart. No chest pain. On physical exam of abdomen patient has pain to palpation and tenderness in all 4 quadrants. Bowel sounds are hyperactive in left upper and left lower quadrant of the abdomen. Negative McBurney's sign. No masses on deep palpation. Patient likely has gastritis. Unlikely to be appendicitis, diverticulitis, or mesenteric ischemia. The plan will be to obtain blood draws for CBC, comprehensive metabolic panel, amylase, lipase, erythrocyte sedimentation rate. patient will be prescribed omeprazole 20 mg to be taken in the morning for the next 6 weeks. Patient has been educated not to take NSAIDs, and to limit alcohol intake and smoking. Patient has been educated on proper diet. Patient has been educated on signs of worsening symptoms and when to return to the walk-in clinic or to present to the emergency room. Patient is agreeable to this plan. [facility] Medical History (Updated 07/03/23 @ 11:50 by Rizwan Ibrahim MD) COVID-19 vaccine administered History of alcohol abuse Thrombocytopenia Leukopenia Fatty liver Tobacco abuse Hypercholesterolemia Pulmonary nodule Atherosclerosis COPD (chronic obstructive pulmonary disease) Hypertension Impaired fasting blood sugar Surgical History (Updated 02/22/21 @ 09:53 by Beverly Wilkins RN) History of inguinal hernia repair History of vasectomy Family History (Updated 08/02/20 @ 10:01 by Janette Paula [facility]) Father No problems noted. Mother Uterine cancer Maternal Grandmother Myocardial infarction Maternal Uncle Myocardial infarction Social History (Updated 07/03/23 @ 11:57 by Rizwan Ibrahim MD) Housing: House Are you a primary healthcare corporate account director to a significant other at home: No Do you presently have visiting nurse or other home services: No Alcohol intake: current Alcohol intake frequency: 0-2 drinks per day Alcohol type: beer Patient Tobacco Use Status: Current everyday Tobacco user Tobacco use type: Cigarette Cigarette Packs Per Day: 1 Cigarettes Per Day: 20.0 Years Smoked: 45 e-Cigarette/Vaping Use: Never Used Second Hand Smoke Exposure: Yes service: No Current occupational status: employed Cognitive needs: No Hearing needs: No Vision needs: Yes Review of Systems Const All systems reviewed & are unremarkable except as noted in HPI and below ENT Denies dysphagia and Denies dizziness Card Denies chest pain Resp Reports cough and Reports pain with cough ( Abdominal pain) GI Reports abdominal pain, Denies melena, Reports bloating, Denies hematochezia, Denies coffee ground emesis, Denies constipation, Denies dysphagia, Denies excessive flatus and Reports loose stools Reports as per HPI Neuro Denies dizziness Physical Exam Vital Signs: Last Vital Signs Temp 97.8 F 07/18/23 09:14 Pulse 92 07/18/23 09:14 BP 110/62 07/18/23 09:14 Pulse Ox 96 07/18/23 09:14 Oxygen Delivery Method Room Air 07/18/23 09:14 BMI result Body Mass Index 22.2 vital signs have been reviewed and are stable Const General: cooperative and no acute distress Orientation/consciousness: patient oriented x3 Limitations: no limitations Resp Auscultation: wheezes expiratory wheezes and upper bilaterally GI Inspection: Yes distended Palpation (GI): Tenderness to palpation present (GI) and no masses Percussion: Yes normal to percussion Auscultation: Hyperactive bowel sounds present Neuro General: patient oriented x3 Assessment & Plan Assessment & Plan (1) Pain in the abdomen: Code(s): R10.9 - Unspecified abdominal pain Qualifiers: Abdominal location: generalized Qualified Code(s): R10.84 - Generalized abdominal pain Plan: patient will be given omeprazole 20 mg to be taken in the morning over the next 6 weeks. Patient has been educated that alcohol and smoking cigarettes can exacerbate abdomen issues. Patient educated not to take NSAIDs. Patient will have blood draw in office, will follow-up with results. Patient understands that with worsening symptoms he is to return to the walk-in clinic or to present to the ED. Orders: Orders Lipase Today R10.9 - Unspecified abdominal pain Comprehensive Met. Panel Today R10.9 - Unspecified abdominal pain Erythrocyte Sedimentation Rate Today R10.9 - Unspecified abdominal pain Amylase Today R10.9 - Unspecified abdominal pain Complete Blood Count Auto Diff Today R10.9 - Unspecified abdominal pain Medications: New omeprazole 20 mg PO DAILY 45 caps 0RF Coding Level of Care Code Est Pt Level 3 (33397) Diagnoses Generalized abdominal pain R10.84 Abdominal location: generalized Time Spent (min) 20
== END 2023-07-18 10:29 | disposition home or self-care (01) ==
PROVIDERS: PCP Internal Medicine; Visit Provider Nurse Practitioner Primary Care
DX: R10.84 Generalized abdominal pain (principal)
CPT/HCPCS: 99213

== ENCOUNTER 2023-07-18 10:19 | Outpatient (REF) | payer MEDICARE, SELFPAY ==
[2023-07-18 13:31] LABS: MANUAL DIFF FLAG NO
[2023-07-18 13:39] LABS: Basophils Percent Auto 0.4 % (0-2); Eosinophils Absolute Auto 0.1 X10*3/uL (0.0-0.4); Eosinophils Percent Auto 0.7 % (0-4); Hematocrit 45.5 % (42.0-52.0); Hemoglobin 16.2 g/dl (14.0-18.0); Imm Gran Abs Auto 0.03 X10*3/uL (0.00-0.03); Imm Gran Pct Auto 0.4 % (0.0-0.4); Lymphocytes Absolute Auto 1.4 X10*3/uL (1.2-4.9); Lymphocytes Percent Auto 17.7 % (20-40); Mean Corpuscular HGB Conc 35.6 g/dl (31.0-36.0); Mean Corpuscular Hemoglobin 33.7 pg (27.0-33.0); Mean Corpuscular Volume 94.6 fL (80.0-98.0); Mean Platelet Volume 10.8 fL (9.4-12.4); Monocytes Absolute Auto 0.8 X10*3/uL (0.1-1.2); Monocytes Percent Auto 10.4 % (2-11); Neutrophils Absolute Auto 5.4 x10*3/uL (2.0-8.3); Neutrophils Percent Auto 70.4 % (45-73); Platelet Count 207 X10*3/uL (160-400); Red Blood Count 4.81 X10*6/uL (4.60-5.80); Red Cell Distribution Width 12.1 % (11.0-16.0); White Blood Count 7.6 X10*3/uL (4.8-10.8)
[2023-07-18 13:54] LABS: Estimated Average Glucose 100 mg/dL; Hemoglobin A1c % 5.1 % (<6.0)
[2023-07-18 14:11] LABS: Alanine Aminotransferase 17 U/L (0-40); Albumin Level 3.9 g/dL (3.5-5.0); Alkaline Phosphatase 108 U/L (39-117); Amylase 54 U/L (28-100); Anion Gap 9 (12-20); Aspartate Amino Transferase 26 U/L (5-37); Bilirubin Total 1.2 mg/dL (0.0-1.0); Blood Urea Nitrogen 8 mg/dL (9-16); Calcium 9.4 mg/dL (8.4-10.2); Carbon Dioxide 28 mmol/L (22-29); Chloride 100 mmol/L (96-108); Cholesterol 156 mg/dL (<200); Estimated Glomerular Filt Rate > 60; Glucose Random 157 mg/dL (60-115); HDL Cholesterol 71 mg/dL (>40); LDL Cholesterol Calculated 65 mg/dL (<100); Lipase 19 U/L (8-78); Potassium 4.4 mmol/L (3.3-5.1); Sodium 133 mmol/L (135-145); Total Protein 6.8 g/dL (6.5-8.0); Triglycerides 104 mg/dL (<150)
[2023-07-18 14:16] LABS: Free T4 (Free Thyroxine) 0.87 ng/dL (0.71-1.85)
[2023-07-18 14:20] LABS: Erythrocyte Sedimentation Rate 6 MM/HR (0-15)
[2023-07-18 14:32] LABS: Thyroid Stimulating Hormone 1.69 uIU/mL (0.32-4.0)
[2023-07-18 14:38] LABS: Folate 15.6 ng/mL (> or = 4.0); Prostate Specific Antigen Scr 2.14 ng/mL (<0.05-4.0); Vitamin B12 337 pg/mL (200-900)
== END 2023-07-18 10:20 | disposition home or self-care (01) ==
LOC: HO.HMGCLDS 10:19
PROVIDERS: Internal Medicine; Visit Provider Nurse Practitioner Primary Care
DX: E78.00 Pure hypercholesterolemia, unspecified (principal); R10.9 Unspecified abdominal pain; R73.01 Impaired fasting glucose; Z12.5 Encounter for screening for malignant neoplasm of prostate
CPT/HCPCS: 36415; 80053; 80061; 82150; 82607; 82746; 83036; 83690; 84153; 84439; 84443; 85025; 85652

== ENCOUNTER 2023-09-07 10:48 | Outpatient (REF) | payer MEDICARE, SELFPAY ==
--- NOTE | ~2023-09-07 | CT_ITS ---
EXAMINATION: CT CHEST SCREENING CLINICAL INFORMATION: Current smoker; 45 pack-year smoking history. COMPARISON: Prior CT examinations, most recently 04/18/2022. TECHNIQUE: Multidetector volumetric CT imaging of the chest is performed without contrast using low dose technique. Additional 2D coronal and sagittal reformatted images and axial 3D maximum intensity projection (MIP) images are generated on the CT workstation. This CT examination was performed using dose optimization techniques as appropriate, variously including the following: *Automated exposure control *Adjustment of mA and/or kV according to patient size (this includes techniques or standardized protocols for targeted exams where dose is matched to indication/reason for exam; i.e. extremities or head) *Use of iterative reconstruction technique DLP: 44 mGy-cm FINDINGS: LUNGS: At the medial right apex (5:76), a benign, calcified granuloma is seen. Within the medial segment of the right middle lobe (5:373), a benign, calcified granuloma is seen. There is a small right lower lobe endobronchial density (5:268), likely inspissated mucous. No noncalcified nodule is seen. There is no mass, infiltrate or groundglass opacity. There are mild right apical paraseptal emphysematous changes. There is generalized small airway thickening. The central airways appear patent. MEDIASTINUM: The thyroid is unremarkable. There is no thoracic aortic aneurysm. There are mild atherosclerotic calcifications of the great vessel origins and thoracic aorta. No sizable mediastinal or hilar lymphadenopathy is seen. CORONARY ARTERY CALCIFICATION: Marked. PLEURA: There is no pleural effusion. No pleural mass or thickening. AXILLA: No lymphadenopathy. UPPER ABDOMEN: Unremarkable OSSEOUS STRUCTURES: There is multi-level mild thoracolumbar spondylosis. No acute or aggressive osseous finding is noted. CT/CT lung screening IMPRESSION: 1. There are benign, calcified right lung nodules. These require no imaging follow-up. No noncalcified nodule is seen. 2. There is no pulmonary mass, infiltrate or groundglass opacity. 3. There are very mild paraseptal emphysematous changes, principally at the right apex. 4. There is generalized small airway thickening, and a small right lower lobe endobronchial density is seen. These findings suggest small airways disease secondary to an infectious or inflammatory etiology. 5. No thoracic lymphadenopathy or pleural effusion is seen. 6. There are degenerative changes of the spine. No aggressive osseous lesion is seen. ASSESSMENT: Lung-RADS category 2: Benign RECOMMENDATION: Routine annual low-dose CT screening in 12 months.
== END 2023-09-07 10:49 | disposition home or self-care (01) ==
LOC: HO.CT 10:48
PROVIDERS: PCP Internal Medicine; Visit Provider Nurse Practitioner Family
DX: Z12.2 Encounter for screening for malignant neoplasm of respiratory organs (principal); F17.210 Nicotine dependence, cigarettes, uncomplicated
CPT/HCPCS: 71271; G0296

== ENCOUNTER 2024-01-02 10:38 | Outpatient (AMB) | payer MEDICARE, SELFPAY ==
[2024-01-02 10:39] VITALS: BP 136/62; PULSE 85; O2SAT 95; BMI 22.2
--- NOTE | 2024-01-02 10:39 | A.OFFPC_ITS ---
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 Allergies No Known Allergies [No Known Allergies*] Allergy (Verified 01/02/24 10:40) Medication List - Last Reconciled 01/02/24 by Rizwan Ibrahim MD albuterol sulfate 90 mcg/actuation (Ventolin HFA) 2 puffs inhalation Q6H PRN amlodipine 2.5 mg PO DAILY 90 days lisinopril 20 mg PO DAILY multivitamin 1 tab PO DAILY omeprazole 20 mg PO DAILY Tobacco use date assessed: 01/02/24 Fall risk assessment: No Falls in past year Last assessed Fall Risk: 01/02/24 Dental Screening Dental Screen Date: 01/02/24 Did you have a dental visit in the last 12 months?: No Did you have a dental problem in the last 6 months where you did not have access to dental care?: No HPI 6 month f/u HPI Details 68-year-old male smoker with a history o f impaired glucose tolerance hypertension COPD atherosclerosis hypercholesterolemia last seen in June 2023. Review of the notes had Cologuard test in June 2023 which was negative. Patient had a CT scan done for lung cancer screening. Patient is here for follow-up [facility] Medical History (Updated 01/02/24 @ 11:29 by Rizwan Ibrahim MD) COVID-19 vaccine administered History of alcohol abuse Thrombocytopenia Leukopenia Fatty liver Tobacco abuse Hypercholesterolemia Pulmonary nodule Atherosclerosis COPD (chronic obstructive pulmonary disease) Hypertension Impaired fasting blood sugar Surgical History (Updated 02/22/21 @ 09:53 by Beverly Wilkins RN) History of inguinal hernia repair History of vasectomy Family History (Updated 08/02/20 @ 10:01 by Janette Paula) Father No problems noted. Mother Uterine cancer Maternal Grandmother Myocardial infarction Maternal Uncle Myocardial infarction Social History (Updated 07/03/23 @ 11:57 by Rizwan Ibrahim MD) Housing: House Are you a primary insurance healthcare representative to a significant other at home: No Do you presently have visiting nurse or other home services: No Alcohol intake: current Alcohol intake frequency: 0-2 drinks per day Alcohol type: beer Patient Tobacco Use Status: Current everyday Tobacco user Tobacco use type: Cigarette Cigarette Packs Per Day: 1 Cigarettes Per Day: 20.0 Years Smoked: 45 e-Cigarette/Vaping Use: Never Used Second Hand Smoke Exposure: Yes service: No Current occupational status: employed Cognitive needs: No Hearing needs: No Vision needs: Yes Questionnaire PHQ-9 Over the last 2 weeks, how often have you been bothered by any of the following problems? 1. Little interest or pleasure in doing things: not at all 2. Feeling down, depressed, or hopeless: not at all 3. Trouble falling or staying asleep, or sleeping too much: not at all 4. Feeling tired or having little energy: not at all 5. Poor appetite or overeating: not at all 6. Feeling bad about yourself - or that you are a failure or have let yourself or your family down: not at all 7. Trouble concentrating on things, such as reading the newspaper or watching television: not at all 8. Moving or speaking so slowly that other people could have noticed. Or the opposite - being so fidgety or restless that you have been moving around a lot more than usual: not at all 9. Thoughts that you would be better off or of hurting yourself in some way: not at all Total score: 0 Depression Screening Interpretation: Negative Depression Screening Done: Yes 33719 - PHQ-9 Billing: Yes Source: Developed by Drs. Edgar Mendoza, Nathalia Park, Héctor Reyes and colleagues, with an educational lise from [employer]. Thrive Questionnaire Date Thrive assessed: 01/02/24 I am a: Patient What is your living situation today?: I have a steady place to live Within the past 12 months, did the food you bought not last and you didn't have the money to get more?: Never true Within the past 12 months, did you worry whether your food would run out before you got money to buy more?: Never true Do you have trouble paying for medicines?: No Do you have trouble getting transportation to medical appointments?: No Do you have trouble paying your heating and electricity bill?: No Do you have trouble taking care of your child, family member or friend?: No Do you have trouble with day-to-day activities such as bathing, preparing meals, shopping, managing finances, etc.?: No Are you currently unemployed and looking for a job?: No Are you interested in more education?: No Please select the resources that you would like help with: None Currently or been in a relationship where the following occur: no concerns reported THRIVE Score: 0 AUDIT C Alcohol Use Questionnaire (AUDIT-C) 1. How often do you have a drink containing alcohol?: 4 or more times a week 2. How many drinks containing alcohol do you have on a typical day when you are drinking?: 3 or 4 3. How often do you have six or more drinks on one occasion?: Less than monthly Total Score: 6 TIN-7 AMB Questionnaire TIN-7 Date TIN - 7 assessed: 01/02/24 Feeling nervous, anxious, or on edge: 0 = Not at all Not being able to stop or control worryin = Not at all Worrying too much about different things: 0 = Not at all Trouble relaxin = Not at all Being so restless that it is hard to sit still: 0 = Not at all Becoming easily annoyed or irritable: 0 = Not at all Feeling afraid as if something awful might happen: 0 = Not at all Total TIN-7 score (0-4 normal; 5-9 mild; 10-14 moderate; 15-21 severe): 0 Source: Developed by Drs. Edgar Mendoza, Nathalia Park, Héctor Reyes and colleagues, with an educational lise from [employer]. TIN-7 Assessment Billing TIN-7 Assessment Tool: TIN-7 Assessment 08711 Physical exam (Primary Care) Vital Signs: Last Vital Signs Pulse 85 01/02/24 10:39 BP 136/62 01/02/24 10:39 Pulse Ox 95 01/02/24 10:39 Oxygen Delivery Method Room Air 01/02/24 10:39 BMI result Body Mass Index 22.2 Tobacco/Smoking Status: Tobacco use Status Tobacco use date assessed 01/02/24 01/02/24 10:41 Patient Tobacco Use Status Current everyday Tobacco 01/02/24 10:41 Tobacco use type Cigarette 01/02/24 10:41 e-Cigarette/Vaping Use Never Used 01/02/24 10:41 PHQ-9: PHQ-9 Score PHQ-9: Total score 0 01/02/24 10:50 Depression Screening Interpretation: Negative Thrive Assessment: Date of Thrive Assessment Date Thrive assessed 01/02/24 01/02/24 10:41 Currently or been in a relationship where the following occur: no concerns reported Const General: alert; No acute distress Eyes Conjunctivae: conjunctivae normal Resp Auscultation: clear to auscultation bilaterally Cardio Rate: regular rate Rhythm: regular rhythm GI Inspection: Yes normal to inspection Extrem General: Yes normal to inspection and No edema Assessment and Plan Assessment & Plan (1) Hypertension: Code(s): I10 - Essential (primary) hypertension Qualifiers: Hypertension type: essential hypertension Qualified Code(s): I10 - Essential (primary) hypertension Plan: Continue with blood pressure medication. Decrease salt intake and exercise presently on amlodipine and lisinopril (2) COPD (chronic obstructive pulmonary disease): Comment: PFT January 2017-patient states he does not use inhaler Code(s): J44.9 - Chronic obstructive pulmonary disease, unspecified Qualifiers: COPD type: emphysema Emphysema type: panlobular Qualified Code(s): J43.1 - Panlobular emphysema Plan: Patient does not require any inhaler but CT scan does reveal emphysema (3) Atherosclerosis: Comment: 40 years old Code(s): I70.90 - Unspecified atherosclerosis Plan: Control the cholesterol, weight, blood pressure (4) Hypercholesterolemia: Code(s): E78.00 - Pure hypercholesterolemia, unspecified Plan: Avoid fried foods, chicken skin, eggs, butter margarine, pastries and meat. Be it pork or beef they have a lot of cholesterol LDL goal of less than 100 and preferably lower. (5) Tobacco abuse: Code(s): Z72.0 - Tobacco use Plan: Strongly advised to stop!!, has been decreasing (6) Pulmonary nodule: Comment: April 2020, May 2021 stable 3 mm April Code(s): R91.1 - Solitary pulmonary nodule Plan: Will continue to follow-up on the lung cancer screening program Medications: New albuterol sulfate 90 mcg/actuation (Ventolin HFA) 2 puffs inhalation Q6H PRN 8.5 grams 0RF shortness of breath or wheezing J43.1 - Panlobular emphysema Coding Level of Care Code Est Pt Level 4 (22221) Diagnoses Essential hypertension I10 Hypertension type: essential hypertension Panlobular emphysema J43.1 COPD type: emphysema Emphysema type: panlobular Atherosclerosis I70.90 Hypercholesterolemia E78.00 Tobacco abuse Z72.0 Pulmonary nodule R91.1 Additional Codes TIN-7 Assessment Billing - TIN-7 Assessment Tool: TIN-7 Assessment [id number] ([id number])
== END 2024-01-02 11:38 | disposition home or self-care (01) ==
PROVIDERS: PCP Internal Medicine; Visit Provider Internal Medicine
DX: I10 Essential (primary) hypertension (principal); J43.1 Panlobular emphysema; I70.90 Unspecified atherosclerosis; E78.00 Pure hypercholesterolemia, unspecified; Z72.0 Tobacco use; R91.1 Solitary pulmonary nodule
CPT/HCPCS: 99214

== ENCOUNTER 2024-05-24 09:22 | Outpatient (AMB) | payer MEDICARE, SELFPAY ==
--- NOTE | 2024-05-24 09:47 | MHC.OFFWIV ---
Intake Vital Signs 05/24/24 09:49 Height 5 ft 9 in Weight 156 lb BMI 23.0 BP 110/70 Blood Pressure Location Rt brachial Position Sitting Pulse 63 Pulse Source Pulse Oximeter Pulse Oximetry (%) 95 Oxygen Delivery Method Room Air Intake Visit Reasons: EP Sore throat, white tongue, headache Intake Note: Patient here for sore throat, headaches, fatigued that has been present since early this week. Patient Tobacco Use Status: Current everyday Tobacco user Allergies No Known Allergies [No Known Allergies*] Allergy (Verified 05/24/24 09:50) Do you need a note to return to daycare/school/sports/work: No HPI HPI Comments History of Present Illness Details 68 y/o male patient who presents to the walk in clinic with c/o SOB, wheezing and chest tightness for few days. Reports body chills and subjective fevers at home. He is a chronic smoker and has COPD. [facility] Medical History (Updated 01/02/24 @ 11:29 by Rizwan Ibrahim MD) COVID-19 vaccine administered History of alcohol abuse Thrombocytopenia Leukopenia Fatty liver Tobacco abuse Hypercholesterolemia Pulmonary nodule Atherosclerosis COPD (chronic obstructive pulmonary disease) Hypertension Impaired fasting blood sugar Surgical History (Updated 02/22/21 @ 09:53 by Beverly Wilkins RN) History of inguinal hernia repair History of vasectomy Family History (Updated 08/02/20 @ 10:01 by Janette Paula) Father No problems noted. Mother Uterine cancer Maternal Grandmother Myocardial infarction Maternal Uncle Myocardial infarction Social History (Updated 07/03/23 @ 11:57 by Rizwan Ibrahim MD) Housing: House Are you a primary health care analyst to a significant other at home: No Do you presently have visiting nurse or other home services: No Alcohol intake: current Alcohol intake frequency: 0-2 drinks per day Alcohol type: beer Patient Tobacco Use Status: Current everyday Tobacco user Tobacco use type: Cigarette Cigarette Packs Per Day: 1 Cigarettes Per Day: 20.0 Years Smoked: 45 e-Cigarette/Vaping Use: Never Used Second Hand Smoke Exposure: Yes service: No Current occupational status: employed Cognitive needs: No Hearing needs: No Vision needs: Yes Review of Systems Const All systems reviewed & are unremarkable except as noted in HPI and below Physical Exam Vital Signs: Last Vital Signs Pulse 63 05/24/24 09:49 BP 110/70 05/24/24 09:49 Pulse Ox 95 05/24/24 09:49 Oxygen Delivery Method Room Air 05/24/24 09:49 BMI result Body Mass Index 23.0 Const General: cooperative and no acute distress Orientation/consciousness: patient oriented x3 HEENT Head: Yes normocephalic Ears: external ears normal and TM's normal bilaterally Mouth: moist mucous membranes Throat: Yes postnasal drainage Resp Effort & Inspection: normal respiratory effort and able to speak in complete sentences Auscultation: clear to auscultation bilaterally, no crackles, no rales, rhonchi and wheezes Cardio Heart sounds: S1 normal heart sound present and S2 normal heart sound present Neuro General: patient oriented x3 Results AMB Rapid Strep AMB Rapid Strep Negative Last Edit by LUCINDA Burrell on 05/24/24 10:11 Results Reviewed Results Reviewed: Laboratory Last Values Strep Scn Rapid Clinic Negative 05/24/24 10:11 Assessment & Plan Assessment & Plan (1) Cough in adult: Code(s): R05.9 - Cough, unspecified Plan: Ordered chest Xray Rapid Strep negative (2) Wheezing on auscultation: Code(s): R06.2 - Wheezing Plan: Ordered Abx Ordered Prednisone and Abx Orders: Orders XR chest 2V Today R05.9 - Cough, unspecified, R06.2 - Wheezing AMB Rapid Strep Screen Today Z13.9 - Encounter for screening, unspecified Medications: New doxycycline hyclate 100 mg PO BID 20 caps 0RF 10 days R05.9 - Cough, unspecified, R06.2 - Wheezing prednisone 50 mg PO DAILY 5 tabs 0RF 5 days R05.9 - Cough, unspecified, R06.2 - Wheezing azithromycin 500 mg PO DAILY 3 tabs 0RF 3 days R05.9 - Cough, unspecified, R06.2 - Wheezing Coding Level of Care Code Est Pt Level 4 (86688) Diagnoses Cough in adult R05.9 Wheezing on auscultation R06.2 Time Spent (min) 20
[2024-05-24 09:49] VITALS: BP 110/70; PULSE 63; O2SAT 95; BMI 23.0
== END 2024-05-24 12:39 | disposition home or self-care (01) ==
PROVIDERS: PCP Internal Medicine; Visit Provider Nurse Practitioner Family
DX: R05.9 Cough, unspecified (principal); R06.2 Wheezing; J02.9 Acute pharyngitis, unspecified
CPT/HCPCS: 87880; 99214

== ENCOUNTER 2024-05-24 10:08 | Outpatient (REF) | payer MEDICARE, SELFPAY ==
--- NOTE | ~2024-05-24 | XR_ITS ---
EXAMINATION: XR CHEST CLINICAL INFORMATION: Cough and shortness of breath COMPARISON: Low-dose chest CT September 07, 2023 and chest x-ray May 21, 2017 TECHNIQUE: 2 views of the chest were obtained. FINDINGS: Cardiac silhouette is normal in size. The lungs are hyperinflated. There is no lobar consolidation. No pleural effusion or pneumothorax. Minimal degenerative changes of the spine. XR/XR chest 2V IMPRESSION: Emphysematous changes of the lungs without acute pulmonary pathology. Electronically signed by: Eduard Knott MD 05/25/2024 08:54 AM EDT
== END 2024-05-24 10:09 | disposition home or self-care (01) ==
LOC: HO.HMGCX 10:08
PROVIDERS: PCP Internal Medicine; Visit Provider Nurse Practitioner Family
DX: R05.9 Cough, unspecified (principal); R06.2 Wheezing
CPT/HCPCS: 71046

== ENCOUNTER 2024-08-01 10:16 | Outpatient (AMB) | payer MEDICARE, SELFPAY ==
[2024-08-01 10:17] VITALS: BP 114/60; PULSE 82; O2SAT 95; BMI 22.3
--- NOTE | 2024-08-01 10:17 | A.OFFPC_ITS ---
Vital Signs 08/01/24 10:17 Height 5 ft 9 in Weight 151 lb BMI 22.3 BP 114/60 Blood Pressure Location Lt brachial Position Sitting Pulse 82 Pulse Source Pulse Oximeter Pulse Oximetry (%) 95 Oxygen Delivery Method Room Air Intake Visit Reasons: Annual Exam Allergies No Known Allergies [No Known Allergies*] Allergy (Verified 08/01/24 10:18) Medication List - Last Reconciled 08/01/24 by Rizwan Ibrahim MD albuterol sulfate 90 mcg/actuation (Ventolin HFA) 2 puffs inhalation Q6H PRN amlodipine 2.5 mg PO DAILY 90 days lisinopril 20 mg PO DAILY multivitamin 1 tab PO DAILY Tobacco use date assessed: 08/01/24 Fall risk assessment: No Falls in past year Last assessed Fall Risk: 08/01/24 Dental Screening Dental Screen Date: 01/02/24 HPI Annual Exam HPI Details 69-year-old male smoker with atheroscler osis COPD hypertension hypercholesterolemia coming in for follow-up. Patient is in the pulmonary lung cancer screening program. Cologuard testing was done in 2022. Review of the notes in May 24 was in the [facility] for sore throat and headache chest x-ray shows COPD but no infiltrate. Patient was prescribed doxycycline with steroids and Zithromax. Last CT scan of the chest was 09/29/2023 patient declined any of the vaccinations. Discussed about alcohol intake which is too much and discussed about smoking and stopping. Patient was not ready for any stopping. [facility] Medical History (Updated 08/01/24 @ 10:29 by Rizwan Ibrahim MD) Nicotine dependence, cigarettes, uncomplicated COVID-19 vaccine administered History of alcohol abuse Thrombocytopenia Leukopenia Fatty liver Hypercholesterolemia Pulmonary nodule Atherosclerosis COPD (chronic obstructive pulmonary disease) Hypertension Impaired fasting blood sugar Surgical History (Updated 02/22/21 @ 09:53 by Beverly Wilkins RN) History of inguinal hernia repair History of vasectomy Family History (Updated 08/01/24 @ 10:19 by Thelma Day CMA) Father No problems noted. Mother Uterine cancer Maternal Grandmother Myocardial infarction Maternal Uncle Myocardial infarction Social History (Updated 08/01/24 @ 10:35 by Rizwan Ibrahim MD) Housing: House Are you a primary sub acute care nurse to a significant other at home: No Do you presently have visiting nurse or other home services: No Alcohol intake: current Alcohol intake frequency: 0-2 drinks per day Alcohol type: beer Comment: QD 4 drinks Patient Tobacco Use Status: Current everyday Tobacco user Tobacco use type: Cigarette Cigarette Packs Per Day: 1 Cigarettes Per Day: 20.0 Years Smoked: 45, (not ready to stop07/2024) e-Cigarette/Vaping Use: Never Used Second Hand Smoke Exposure: Yes service: No Current occupational status: employed Cognitive needs: No Hearing needs: No Vision needs: Yes Questionnaire PHQ-9 Over the last 2 weeks, how often have you been bothered by any of the following problems? 1. Little interest or pleasure in doing things: not at all 2. Feeling down, depressed, or hopeless: not at all 3. Trouble falling or staying asleep, or sleeping too much: not at all 4. Feeling tired or having little energy: not at all 5. Poor appetite or overeating: not at all 6. Feeling bad about yourself - or that you are a failure or have let yourself or your family down: not at all 7. Trouble concentrating on things, such as reading the newspaper or watching television: not at all 8. Moving or speaking so slowly that other people could have noticed. Or the opposite - being so fidgety or restless that you have been moving around a lot more than usual: not at all 9. Thoughts that you would be better off or of hurting yourself in some way: not at all Total score: 0 Source: Developed by Drs. Edgar Mendoza, Nathalia Park, Héctor Reyes and colleagues, with an educational lise from [employer]. Thrive Questionnaire Date Thrive assessed: 08/01/24 I am a: Patient What is your living situation today?: I have a steady place to live Within the past 12 months, did the food you bought not last and you didn't have the money to get more?: Never true Within the past 12 months, did you worry whether your food would run out before you got money to buy more?: Never true Do you have trouble paying for medicines?: No Do you have trouble getting transportation to medical appointments?: No Do you have trouble paying your heating and electricity bill?: I choose not to answer this question Do you have trouble taking care of your child, family member or friend?: No Do you have trouble with day-to-day activities such as bathing, preparing meals, shopping, managing finances, etc.?: No Are you currently unemployed and looking for a job?: No Are you interested in more education?: No Please select the resources that you would like help with: None Currently or been in a relationship where the following occur: I choose not to answer THRIVE Score: 0 AUDIT C Alcohol Use Questionnaire (AUDIT-C) 1. How often do you have a drink containing alcohol?: 4 or more times a week 2. How many drinks containing alcohol do you have on a typical day when you are drinking?: 3 or 4 3. How often do you have six or more drinks on one occasion?: Never Total Score: 5 TIN-7 AMB Questionnaire TIN-7 Date TIN - 7 assessed: 08/01/24 Feeling nervous, anxious, or on edge: 0 = Not at all Not being able to stop or control worryin = Not at all Worrying too much about different things: 0 = Not at all Trouble relaxin = Not at all Being so restless that it is hard to sit still: 0 = Not at all Becoming easily annoyed or irritable: 0 = Not at all Feeling afraid as if something awful might happen: 0 = Not at all Total TIN-7 score (0-4 normal; 5-9 mild; 10-14 moderate; 15-21 severe): 0 Source: Developed by Drs. Edgar Mendoza, Nathalia Park, Héctor Reyes and colleagues, with an educational lise from [employer]. Review of Systems Const Denies poor appetite and Denies weakness Eyes Denies no additional complaints ENT Reports Normal hearing present, Denies dizziness, Denies nasal congestion, Denies tinnitus and Denies sore throat Card Denies chest pain, Denies syncope, Denies rapid heart rate and Denies dyspnea Resp Denies cough and Denies dyspnea GI Denies change in stool character, Reports constipation, Denies diarrhea, Denies nausea and Denies vomiting Denies dysuria and Denies urinary frequency Neuro Reports Normal hearing present, Denies confusion, Denies dizziness, Denies syncope and Denies weakness Psych Denies confusion Physical exam (Primary Care) Vital Signs: Last Vital Signs Pulse 82 08/01/24 10:17 BP 114/60 08/01/24 10:17 Pulse Ox 95 08/01/24 10:17 Oxygen Delivery Method Room Air 08/01/24 10:17 BMI result Body Mass Index 22.3 Tobacco/Smoking Status: Tobacco use Status Tobacco use date assessed 08/01/24 08/01/24 10:22 Patient Tobacco Use Status Current everyday Tobacco 08/01/24 10:22 Tobacco use type Cigarette 08/01/24 10:22 e-Cigarette/Vaping Use Never Used 08/01/24 10:22 PHQ-9: PHQ-9 Score PHQ-9: Total score 0 08/01/24 10:22 Thrive Assessment: Date of Thrive Assessment Date Thrive assessed 08/01/24 08/01/24 10:22 Currently or been in a relationship where the following occur: I choose not to answer Const General: No confusion Orientation/consciousness: No confusion HENMT Head: Yes normocephalic Ears: external ears normal and TM's normal bilaterally Face and sinus: Yes normal facial exam Mouth: moist mucous membranes Throat: Yes tonsils normal Eyes Conjunctivae: conjunctivae normal Pupils: Equal, round and reactive pupils present and Pupil accommodation reflex normal Direct Ophthalmoscopy: normal light reflex Neck Neck: No lymphadenopathy Thyroid: Thyroid normal Chest Chest palpation & inspection: normal inspection of the chest Resp Effort & Inspection: no audible wheezes Auscultation: no crackles, no wheezes and diminished lung sounds Cardio Rate: regular rate Rhythm: regular rhythm Peripheral pulses: radial pulses present and dorsalis pedis present GI Other: declined Palpation (GI): no masses Auscultation: normal bowel sounds and normoactive bowel sounds Rectal Exam - Male: Yes deferred Other: declined Skin General skin exam: no rashes or lesions noted Rashes: no rashes Neuro General: No confusion Cranial nerves: Yes Equal, round and reactive pupils present and Yes Normal hearing present Cognition (Neuro): normal cognition Gait exam (Neuro): Normal gait present Motor exam (neuro): 5/5 motor strength present throughout Deep tendon reflexes (DTR's): Right brachioradialis reflex intensity grade: 2+, Left brachioradialis reflex intensity grade: 2+, Right patellar reflex intensity grade: 2+ and Left patellar reflex intensity grade: 2+ Extrem General: No edema Coding Level of Care Code Est Pt Prev Care >65y(23556) Diagnoses Annual physical exam Z00.00 Panlobular emphysema J43.1 COPD type: emphysema Emphysema type: panlobular Pulmonary nodule R91.1 Nicotine dependence, cigarettes, uncomplicated F17.210 Hypercholesterolemia E78.00 Essential hypertension I10 Hypertension type: essential hypertension Impaired fasting blood sugar R73.01 Assessment & Plan Assessment & Plan (1) Annual physical exam: Code(s): Z00.00 - Encounter for general adult medical examination without abnormal findings Category: Medical Plan: Patient is advised to eat healthy, keep well hydrated, keep active and have adequate sleep. (2) COPD (chronic obstructive pulmonary disease): Comment: PFT January 2017-patient states he does not use inhaler Code(s): J44.9 - Chronic obstructive pulmonary disease, unspecified Category: Medical Qualifiers: COPD type: emphysema Emphysema type: panlobular Qualified Code(s): J43.1 - Panlobular emphysema Plan: Patient is strongly advised to stop smoking! (3) Pulmonary nodule: Comment: April 2020, May 2021 stable 3 mm April, 09/29/2023 lung cancer screening program Code(s): R91.1 - Solitary pulmonary nodule Category: Medical Plan: 09/29/[address] scan of the chest patient is in the lung cancer screening program (4) Nicotine dependence, cigarettes, uncomplicated: Comment: (smoker 1ppd, 45pyh) Code(s): F17.210 - Nicotine dependence, cigarettes, uncomplicated Category: Medical Plan: Patient is strongly advised to stop smoking! (5) Hypercholesterolemia: Code(s): E78.00 - Pure hypercholesterolemia, unspecified Category: Medical Plan: Avoid fried foods, chicken skin, eggs, butter margarine, pastries and meat. Be it pork or beef they have a lot of cholesterol LDL goal of less than 130 and triglyceride of less than 150. (6) Hypertension: Code(s): I10 - Essential (primary) hypertension Category: Medical Qualifiers: Hypertension type: essential hypertension Qualified Code(s): I10 - Essential (primary) hypertension Plan: Continue with blood pressure medication. Decrease salt intake and exercise takes amlodipine 2.5 mg once a day lisinopril 20 mg once a day (7) Impaired fasting blood sugar: Code(s): R73.01 - Impaired fasting glucose Category: Medical Plan: Decrease the amount of carbohydrate intake, pasta, bread, rice and potatoes are all sugar and that is aside from all the sweet stuff, remember that fruits are good but they are Sweet also. Orders: Orders Hemoglobin A1c Today R73.01 - Impaired fasting glucose Free T4 (Free Thyroxine) Today I10 - Essential (primary) hypertension Complete Blood Count Auto Diff Today E78.00 - Pure hypercholesterolemia, unspecified Lipid Panel Today E78.00 - Pure hypercholesterolemia, unspecified Thyroid Stimulating Hormone Today I10 - Essential (primary) hypertension Comprehensive Met. Panel Today I10 - Essential (primary) hypertension Vitamin B12 and Folate Today E78.00 - Pure hypercholesterolemia, unspecified
== END 2024-08-01 10:48 | disposition home or self-care (01) ==
PROVIDERS: PCP Internal Medicine; Visit Provider Internal Medicine
DX: Z00.00 Encounter for general adult medical examination without abnormal findings (principal); J43.1 Panlobular emphysema; R91.1 Solitary pulmonary nodule; F17.210 Nicotine dependence, cigarettes, uncomplicated; E78.00 Pure hypercholesterolemia, unspecified; I10 Essential (primary) hypertension; R73.01 Impaired fasting glucose

== ENCOUNTER → 2024-08-01 10:16 | Outpatient (BNVA) | payer MEDICARE, SELFPAY | PROVIDERS: PCP Internal Medicine; Visit Provider Internal Medicine | DX: Z00.00 Encounter for general adult medical examination without abnormal findings (principal); J43.1 Panlobular emphysema; R91.1 Solitary pulmonary nodule; E78.00 Pure hypercholesterolemia, unspecified; I10 Essential (primary) hypertension; R73.01 Impaired fasting glucose; F17.210 Nicotine dependence, cigarettes, uncomplicated; Z71.6 Tobacco abuse counseling | CPT/HCPCS: 96127; 99397 ==

== ENCOUNTER 2024-09-08 15:34 | Outpatient (REF) | payer MEDICARE, SELFPAY ==
--- NOTE | ~2024-09-08 | CT_ITS ---
EXAMINATION: CT LUNG SCREENING HISTORY: Smoking history TECHNIQUE: Low dose axial images were obtained from the sternal notch to upper abdomen without IV contrast per standard departmental protocol. Sagittal and coronal reformatted images were also obtained and reviewed. One or more of the following techniques was used for dose reduction: Automated exposure control, adjustment of the mA and/or kV according to patient size, use of iterative reconstruction technique. DLP: 43 mGy-cm COMPARISON: Comparison is made with the prior examination dated 09/07/2023. FINDINGS: Lung nodules: Again seen is a punctate granuloma at the right lung apex (see image 84. No new pulmonary nodules are identified. Emphysema: none Coronary Calcification: severe Aortic Arch Calcification: mild Potentially Significant Incidentals : none Additional Chest Findings: There is no pleural or pericardial effusion. No mediastinal or axillary lymphadenopathy is identified. Visualized upper abdomen: The visualized portions of the liver, spleen, and adrenals have an unremarkable unenhanced appearance. CT/CT lung screening IMPRESSION: No suspicious pulmonary nodules are identified. LUNG-RADS ASSESSMENT: Lung-RADS 2: Benign MANAGEMENT: Continue annual screening with LDCT in 12 months Category S: N/A Electronically signed by: Edgar Oh MD 09/15/2024 03:19 PM [facility]
== END 2024-09-08 15:35 | disposition home or self-care (01) ==
LOC: HO.CT 15:34
PROVIDERS: PCP Internal Medicine; Visit Provider Physician Assistant Medical
DX: Z12.2 Encounter for screening for malignant neoplasm of respiratory organs (principal); F17.210 Nicotine dependence, cigarettes, uncomplicated
CPT/HCPCS: 71271

== ENCOUNTER → 2024-09-08 15:36 | Outpatient (BNV) | payer MEDICARE, SELFPAY | PROVIDERS: PCP Internal Medicine; Visit Provider Radiology Diagnostic Radiology | DX: F17.210 Nicotine dependence, cigarettes, uncomplicated (principal) | CPT/HCPCS: 71271 ==

== ENCOUNTER 2025-01-29 10:05 | Outpatient (AMB) | payer MEDICARE, SELFPAY ==
[2025-01-29 10:08] VITALS: BP 108/62; PULSE 58; O2SAT 98; BMI 21.9
--- NOTE | 2025-01-29 10:08 | A.OFFPC_ITS ---
Vital Signs 01/29/25 10:08 01/29/25 10:40 Height 5 ft 9 in Weight 148 lb BMI 21.9 BP 108/62 114/60 Blood Pressure Location Lt brachial Lt brachial Position Sitting Sitting Pulse 58 Pulse Source Pulse Oximeter Pulse Oximetry (%) 98 Oxygen Delivery Method Room Air Intake Visit Reasons: Hypertension Allergies No Known Allergies [No Known Allergies*] Allergy (Verified 01/29/25 10:08) Tobacco use date assessed: 01/29/25 Fall risk assessment: No Falls in past year Last assessed Fall Risk: 01/29/25 Dental Screening Dental Screen Date: 01/29/25 Did you have a dental visit in the last 12 months?: Yes Did you have a dental problem in the last 6 months where you did not have access to dental care?: No Was dental information given to patient?: Patient has dentist [facility] Medical History (Updated 08/01/24 @ 10:29 by Rizwan Ibrahim MD) Nicotine dependence, cigarettes, uncomplicated COVID-19 vaccine administered History of alcohol abuse Thrombocytopenia Leukopenia Fatty liver Hypercholesterolemia Pulmonary nodule Atherosclerosis COPD (chronic obstructive pulmonary disease) Hypertension Impaired fasting blood sugar Surgical History (Updated 02/22/21 @ 09:53 by Beverly Wilkins RN) History of inguinal hernia repair History of vasectomy Family History (Updated 08/01/24 @ 10:19 by Thelma Day CMA) Father No problems noted. Mother Uterine cancer Maternal Grandmother Myocardial infarction Maternal Uncle Myocardial infarction Social History (Updated 08/01/24 @ 10:35 by Rizwan Ibrahim MD) Housing: House Are you a primary care transition coordinator to a significant other at home: No Do you presently have visiting nurse or other home services: No Alcohol intake: current Alcohol intake frequency: 0-2 drinks per day Alcohol type: beer Comment: QD 4 drinks Patient Tobacco Use Status: Current everyday Tobacco user Tobacco use type: Cigarette Cigarette Packs Per Day: 1 Cigarettes Per Day: 20.0 Years Smoked: 45, (not ready to stop07/2024) e-Cigarette/Vaping Use: Never Used Second Hand Smoke Exposure: Yes service: No Current occupational status: employed Cognitive needs: No Hearing needs: No Vision needs: Yes Questionnaire PHQ-9 Over the last 2 weeks, how often have you been bothered by any of the following problems? 1. Little interest or pleasure in doing things: not at all 2. Feeling down, depressed, or hopeless: not at all 3. Trouble falling or staying asleep, or sleeping too much: not at all 4. Feeling tired or having little energy: not at all 5. Poor appetite or overeating: not at all 6. Feeling bad about yourself - or that you are a failure or have let yourself or your family down: not at all 7. Trouble concentrating on things, such as reading the newspaper or watching television: not at all 8. Moving or speaking so slowly that other people could have noticed. Or the o pposite - being so fidgety or restless that you have been moving around a lot more than usual: not at all 9. Thoughts that you would be better off or of hurting yourself in some way: not at all Total score: 0 Depression Screening Interpretation: Negative Depression Screening Done: Yes Source: Developed by Drs. Edgar Mendoza, Nathalia Park, Héctor Reyes and colleagues, with an educational lise from [employer]. Thrive Questionnaire Date Thrive assessed: 01/29/25 I am a: Patient What is your living situation today?: I have a steady place to live Within the past 12 months, did the food you bought not last and you didn't have the money to get more?: Sometimes True Within the past 12 months, did you worry whether your food would run out before you got money to buy more?: Sometimes True Do you have trouble paying for medicines?: No Do you have trouble getting transportation to medical appointments?: No Do you have trouble paying your heating and electricity bill?: No Do you have trouble taking care of your child, family member or friend?: No Do you have trouble with day-to-day activities such as bathing, preparing meals, shopping, managing finances, etc.?: No Are you currently unemployed and looking for a job?: No Are you interested in more education?: No Please select the resources that you would like help with: None Currently or been in a relationship where the following occur: No concerns reported THRIVE Score: 2 AUDIT C Alcohol Use Questionnaire (AUDIT-C) 1. How often do you have a drink containing alcohol?: 4 or more times a week 2. How many drinks containing alcohol do you have on a typical day when you are drinking?: 3 or 4 3. How often do you have six or more drinks on one occasion?: Never Total Score: 5 TIN-7 AMB Questionnaire TIN-7 Date TIN - 7 assessed: 01/29/25 Feeling nervous, anxious, or on edge: 0 = Not at all Not being able to stop or control worryin = Not at all Worrying too much about different things: 0 = Not at all Trouble relaxin = Not at all Being so restless that it is hard to sit still: 0 = Not at all Becoming easily annoyed or irritable: 0 = Not at all Feeling afraid as if something awful might happen: 0 = Not at all Total TIN-7 score (0-4 normal; 5-9 mild; 10-14 moderate; 15-21 severe): 0 Source: Developed by Drs. Edgar Mendoza, Nathalia Park, Héctor Reyes and colleagues, with an educational lise from [employer]. Physical exam (Primary Care) Vital Signs: Last Vital Signs Pulse 58 01/29/25 10:08 BP 114/60 01/29/25 10:40 Pulse Ox 98 01/29/25 10:08 Oxygen Delivery Method Room Air 01/29/25 10:08 BMI result Body Mass Index 21.9 Tobacco/Smoking Status: Tobacco use Status Tobacco use date assessed 01/29/25 01/29/25 10:14 Patient Tobacco Use Status Current everyday Tobacco 01/29/25 10:14 Tobacco use type Cigarette 01/29/25 10:14 e-Cigarette/Vaping Use Never Used 01/29/25 10:14 PHQ-9: PHQ-9 Score PHQ-9: Total score 0 01/29/25 10:41 Depression Screening Interpretation: Negative Thrive Assessment: Date of Thrive Assessment Date Thrive assessed 01/29/25 01/29/25 10:14 Currently or been in a relationship where the following occur: No concerns reported Const General: alert; No acute distress Eyes Conjunctivae: conjunctivae normal Resp Auscultation: clear to auscultation bilaterally Cardio Rate: regular rate Rhythm: regular rhythm GI Inspection: Yes normal to inspection Extrem General: Yes normal to inspection and No edema Coding Level of Care Code Est Pt Level 4 (56332) Complex EM visit Add On G2211 Diagnoses Impaired fasting blood sugar R73.01 Essential hypertension I10 Hypertension type: essential hypertension Panlobular emphysema J43.1 COPD type: emphysema Emphysema type: panlobular Atherosclerosis I70.90 Hypercholesterolemia E78.00 Nicotine dependence, cigarettes, uncomplicated F17.210 Assessment & Plan Assessment & Plan (1) Impaired fasting blood sugar: Code(s): R73.01 - Impaired fasting glucose Category: Medical Plan: Decrease the amount of carbohydrate intake, pasta, bread, rice and potatoes are all sugar and that is aside from all the sweet stuff, remember that fruits are good but they are Sweet also. Advised to get blood work done (2) Hypertension: Code(s): I10 - Essential (primary) hypertension Category: Medical Qualifiers: Hypertension type: essential hypertension Qualified Code(s): I10 - Essential (primary) hypertension Plan: Continue with blood pressure medication. Decrease salt intake and exercise on amlodipine 2.5 mg once a day and lisinopril 20 mg once a day (3) COPD (chronic obstructive pulmonary disease): Comment: PFT January 2017-patient states he does not use inhaler Code(s): J44.9 - Chronic obstructive pulmonary disease, unspecified Category: Medical Qualifiers: COPD type: emphysema Emphysema type: panlobular Qualified Code(s): J43.1 - Panlobular emphysema Plan: Continue with albuterol inhaler. Advised to stop smoking. (4) Atherosclerosis: Comment: 40 years old Code(s): I70.90 - Unspecified atherosclerosis Category: Medical Plan: Control the cholesterol, weight, blood pressure, advised to stop smoking get blood work done. (5) Hypercholesterolemia: Code(s): E78.00 - Pure hypercholesterolemia, unspecified Category: Medical Plan: Avoid fried foods, chicken skin, eggs, butter margarine, pastries and meat. Be it pork or beef they have a lot of cholesterol with atherosclerosis LDL goal of less than 70. Blood work requested (6) Nicotine dependence, cigarettes, uncomplicated: Comment: (smoker 1ppd, 45pyh) Code(s): F17.210 - Nicotine dependence, cigarettes, uncomplicated Category: Medical Plan: Up-to-date with cat scan August 2024. still smoking 1/2 a pack a day Plan History of Present Illness The patient is a 69-year-old male presenting with a follow-up visit for management of his chronic conditions including impaired glucose tolerance, Chronic Obstructive Pulmonary Disease (COPD), essential hypertension, hypercholesterolemia, and atherosclerosis. Alongside this, there is a continuation plan for monitoring his history of hyponatremia and elevated blood sugar levels. In the past, he has successfully managed his cholesterol with good outcomes from bloodwork in 2022. During the visit, the conversation also included discussions on smoking cessation as he has currently reduced his intake to half a pack per day. His history of a CT scan in August 2024 confirms no suspicious nodules. His self- reported health suggests no current symptoms requiring the use of his albuterol inhaler and no new symptoms affecting his chronic conditions. The ongoing use of medications for blood pressure were noted, with regular blood work and surveillance planned to continue managing his health status. Regular hydration and potential inhaler usage are highlighted in conversations for better chronic condition management. Health Maintenance - Cologuard test completed in 2022 with no noted issues. - CT scan performed in August 2024, showing no suspicious nodules. - Blood pressure management with amlodipine and lisinopril. - Recommendations to stop smoking, currently reduced to half a pack per day. - Encouragement to increase water intake for kidney health. - Discussion on vaccination status; pneumonia vaccine acknowledged, tetanus and shingles vaccines recommended. Social History - Smoking: Significant reduction to half a pack per day from over a pack. - Hydration: Reported low water consumption recommended to be improved for kidney health. - Exercise and Activity: No specific details discussed but encouragement of positive lifestyle behaviors. - Nutrition: Reported dietary intake not specified, though increased water consumption is recommended. Review of Systems - Respiratory: Denies shortness of breath, palpitations. - Cardiovascular: Denies chest pains, dizziness, passing out. - Neurologic: Denies dizziness or altered consciousness. - Gastrointestinal: Denies digestive pain. - General: Denies swelling. Physical Exam - Cardiovascular- Blood pressure noted at 114/60 which is satisfactory. - General- Overall stable, no signs of distress or new symptoms reported. Results - Labs: History of hyponatremia with elevated blood sugar in July 2023; normal hemoglobin A1c. - Imaging: CT scan in August 2024 noted no suspicious nodules. Plan 1. 5 mg and lisinopril 20 mg. Albuterol inhaler use should continue on an as- needed basis. I strongly advised further smoking cessation efforts following his reduction to half a pack per day. Blood work has been requested to further evaluate hyponatremia, blood sugar, and cholesterol. Reinforce the need for fasting blood tests. Increased water consumption is encouraged for improved kidney function, and regular follow-up at the clinic for ongoing chronic condition management is recommended. Vaccinations for tetanus and shingles were discussed with advisement for consideration in future preventative care strategies.: Patient was informed and verbally consented to the use of an ambient scribe for clinic note documentation during this visit. Discussion Notes I addressed the patient's concerns regarding his chronic conditions and recommended continuation of current medications for hypertension management. The risks of ongoing smoking were discussed, alongside his current reduction, with further cessation strongly encouraged. We reviewed the results of his CT scan and blood work, emphasizing the importance of regular surveillance. Immunizations for tetanus and shingles were discussed, including benefits and his preference against them. Consent for blood work was confirmed, and fasting for accurate results was emphasized. We plan regular follow-ups to monitor his overall health status, with a focus on effective management of all chronic conditions. Patient Instructions - Stop smoking or further reduce to a quarter pack daily. - Use the albuterol inhaler only if shortness of breath occurs. - Increase your water intake to help your kidneys. - Complete the fasting blood work within the next week. - Consider vaccinations discussed if interested. - Report any new symptoms or concerns. - Follow-up with appointments as planned.
[2025-01-29 10:40] VITALS: BP 114/60
== END 2025-01-29 10:46 | disposition home or self-care (01) ==
LOC: HO.HMCH 10:05
PROVIDERS: PCP Internal Medicine; Visit Provider Internal Medicine
DX: R73.01 Impaired fasting glucose (principal); I10 Essential (primary) hypertension; J43.1 Panlobular emphysema; I70.90 Unspecified atherosclerosis; E78.00 Pure hypercholesterolemia, unspecified; F17.210 Nicotine dependence, cigarettes, uncomplicated

== ENCOUNTER → 2025-01-29 10:05 | Outpatient (BNVA) | payer MEDICARE, SELFPAY | PROVIDERS: PCP Internal Medicine; Visit Provider Internal Medicine | DX: I10 Essential (primary) hypertension (principal); R73.01 Impaired fasting glucose; J43.1 Panlobular emphysema; I70.90 Unspecified atherosclerosis; E78.00 Pure hypercholesterolemia, unspecified; F17.210 Nicotine dependence, cigarettes, uncomplicated; Z71.6 Tobacco abuse counseling | CPT/HCPCS: 99212 ==